=== PATIENT | male | born 1960 | race Caucasian/White ===

== ENCOUNTER → 2020-03-07 11:27 | Outpatient (CLI) | payer OTHER, SELFPAY ==
[2020-03-08 10:30] LABS: COVID19 Sendout Not Detected (Not Detect)
== END ==
PROVIDERS: PCP Family Medicine; Visit Provider Physician Assistant
DX: Z11.59 Encounter for screening for other viral diseases (principal)
CPT/HCPCS: 87635

== ENCOUNTER → 2024-01-11 09:32 | Outpatient (CLI) | payer MEDICARE, OTHER, SELFPAY ==
[2024-01-11 10:10] LABS: Add Manual Diff / Slide Review NO; Basophils Absolute Auto 100 /uL (0-100); Eosinophils Absolute Auto 200 /uL (0-450); Hematocrit 45.5 % (41-53); Hemoglobin 15.6 g/dL (13.5-17.5); Lymphocytes Absolute Auto 1500 /uL (1100-4500); Lymphocytes Percent Auto 27.8 % (25-40); Mean Corpuscular HGB Conc 34.3 % (30-36); Mean Corpuscular Hemoglobin 30.9 PG (26-34); Monocytes Absolute Auto 400 /uL (0-900); Monocytes Percent Auto 6.5 % (3-14); Neutrophils Absolute Auto 3400 /uL (1500-7000); Neutrophils Percent Auto 61.7 % (50-75); Platelet Count 220 X10^3/uL (150-400); Red Blood Cell Count 5.05 X10^6/uL (4.5-5.9); Red Cell Distribution Width 12.8 % (11.6-14.8); White Blood Cell Count 5.5 X10^3/uL (4.5-11.0)
[2024-01-11 12:38] LABS: Alanine Aminotransferase 34 IU/L (<50); Albumin 4.6 g/dL (3.5-5.0); Albumin Globulin Ratio 1.5 (1.0-2.8); Alkaline Phosphatase 83 U/L (38-126); Aspartate Aminotransferase 33 IU/L (17-59); BUN Creatinine Ratio 21.1 (6-22); Bilirubin Total 0.7 mg/dL (0.2-1.3); Blood Urea Nitrogen 16 mg/dL (9-20); Calcium 9.4 mg/dL (8.4-10.2); Carbon Dioxide 29 mmol/L (22-32); Chloride 105 mmol/L (98-107); Cholesterol 181 mg/dL (140-199); Estimated Glomerular Filt Rate > 60 mL/min (>60); Glucose 101 mg/dL (80-110); HDL Cholesterol 41 mg/dL (40-60); HEMOLYSIS < 15 (0-50); LDL Cholesterol Calculated 109 mg/dL (<100); Potassium 4.3 mmol/L (3.4-5.1); Sodium 137 mmol/L (137-145); Total Protein 7.6 g/dL (6.3-8.2); Triglycerides 154 mg/dL (35-150)
[2024-01-11 13:32] LABS: Hemoglobin A1C% w Est Avg Glu 5.3 % (4.0-6.0)
== END ==
PROVIDERS: PCP Nurse Practitioner Family; Referring Provider Nurse Practitioner Family; Visit Provider Nurse Practitioner Family
DX: E78.5 Hyperlipidemia, unspecified (principal); Z13.1 Encounter for screening for diabetes mellitus; K21.9 Gastro-esophageal reflux disease without esophagitis
CPT/HCPCS: 36415; 80053; 80061; 83036; 85025

== ENCOUNTER 2024-02-15 13:44 | Observation (INO) | payer MEDICARE, OTHER, SELFPAY ==
[2024-02-15] VITALS (25 sets, daily range): BP systolic 100–156; BP diastolic 65–85; PULSE 67–122; RESP 12–32; TEMP 36.1–37.1; O2SAT 93–99; BMI 31.1; BMI 30.8
--- NOTE | 2024-02-15 14:10 | DI.RAD.S_ITS ---
PROCEDURE: XR CHEST 1V INDICATIONS: chest pain TECHNIQUE: One view of the chest was acquired. COMPARISON: None. FINDINGS: Surgical changes and devices: None. Lungs and pleura: No pleural effusions or pneumothorax. Streaky left basilar opacity, likely atelectasis. Eventration of the right hemidiaphragm versus right basilar mass. Mediastinum: Mediastinal contours appear normal. Heart size is normal. Bones and chest wall: No suspicious bony lesions. Overlying soft tissues appear unremarkable. IMPRESSION: Even trace coffey of the right hemidiaphragm versus right basilar mass. Consider lateral x-ray for confirmation. Dictated by: Renato Blakely M.D. on 02/15/2024 at 14:45 Approved by: Reanto Blakely M.D. on 02/15/2024 at 14:46
--- NOTE | 2024-02-15 14:24 | ED.ARRPALP ---
HPI - Arrhythmia/Palpitations General Chief Complaint: Arrhythmia/Palpitations Stated Complaint: Irregular Heart Rate Time Seen by Provider: 02/15/24 14:23 Source: patient Mode of arrival: Ambulatory History of Present Illness HPI narrative: 63-year-old male with new diagnosis atrial flutter with rapid ventricular response noted in clinic today, referred for further evaluation. Patient does not recall any known diagnoses of heart rhythm problems, works as a contractor with regular long-haul flights, last long-haul flights to [facility] December 2023, had a shorter 2 hour flight from [place] on 01/31/2024, during which his smart watch was signaling that he had a fast heart rate, heart rate was indicated to be 130, he did feel that he was going a bit fast, no associated diaphoresis or shortness of breath, did not feel like he was going to pass out, he had for these intermittent events during the flight, did not seek care, has had it happen intermittently over the last 4-5 days, with your regular heartbeat sensation. He communicated with his primary care provider, who scheduled clinic appointment today, while in clinic they EKG shows atrial flutter with rapid ventricular response 100 and 30s, referred here. He does feel that his heart rate is going fast, still does not endorse any shortness of breath or diaphoresis, no syncope or presyncope symptoms. He denies any recent illness symptoms, no fevers or chills, no nausea vomiting or diarrhea, no change in medications, no [id number] decongestant medications, denies drug or alcohol use. He does not take blood thinner medications. He has no problems with GI bleeding in the past, no black or red stools, no nosebleeds. Related Data Home Medications Medication Instructions Recorded Confirmed loperamide 2 mg capsule mg PO 01/10/24 02/15/24 sildenafil 25 mg tablet (Viagra) 25 mg PO DAILY PRN 01/10/24 02/15/24 Previous Rx's Medication Instructions Recorded esomeprazole magnesium 20 mg 20 mg PO DAILY PRN acid reflux #90 01/10/24 capsule,delayed release (Nexium) caps gabapentin 100 mg capsule 100 mg PO QID pain #90 caps 01/10/24 simvastatin 10 mg tablet (Zocor) 10 mg PO HS #90 tabs 01/10/24 Allergies Allergy/AdvReac Type Severity Reaction Status Date / Time No Known Allergies Allergy Verified 02/15/24 17:59 Review of Systems Review of Systems Narrative: As per HPI Patient History Medical History (Updated 02/15/24 @ 17:57 by Coleman King MD) Atrial flutter CONSTANCE on CPAP Hyperlipidemia GERD (gastroesophageal reflux disease) History of colon polyps Surgical History History of repair of rotator cuff Social History household members: none Smoking Status: Former smoker alcohol intake: current Smoking Status: Former smoker alcohol intake frequency: a few times a week Alcohol type: wine Substance Use Type: does not use Exam Narrative Exam Narrative: GENERAL: Well-developed patient, in mild distress. HEAD: Atraumatic. Normocephalic. EYES: Pupils equal round and reactive. Extraocular motions intact. No scleral icterus. No injection or drainage. ENT: Nose without bleeding, purulent drainage. Throat without erythema, tonsillar hypertrophy or exudate. Airway patent. NECK: Trachea midline. Non tender CARDIOVASCULAR: Fast rate, regular rhythm, no obvious murmurs gallops, or rubs. RESPIRATORY: Clear to auscultation. Breath sounds equal bilaterally. No wheezes, rales, or rhonchi. GASTROINTESTINAL: Abdomen soft, non-tender, nondistended. EXTREMITIES: No edema or joint tenderness. BACK: Nontender without deformity or crepitance. No flank tenderness. NEURO: AOx3. SKIN: No rash or erythema of visible areas Initial Vital Signs Initial Vital Signs: Vital Signs Temperature 97 F L 02/15/24 13:59 Pulse Rate 85 02/15/24 13:59 Respiratory Rate 17 02/15/24 13:59 Blood Pressure 125/77 02/15/24 13:59 Pulse Oximetry 97 02/15/24 13:59 Oxygen Delivery Method Room Air 02/15/24 13:59 Course Orders Ordered: ED Orders 02/15/24 14:10 XR chest 1V Stat EKG-12 Lead Stat 02/15/24 14:19 Complete Blood Count AUTO DIFF Stat Comprehensive Metabolic Panel Stat Lipase Stat Magnesium Stat PTT Partial Thromboplastin Kenneth Stat Prothrombin Time INR Stat Troponin & CK Cardiac Panel Stat Atorvastatin Calcium (Atorvastatin 20 Mg Tablet) 10 mg PO BEDTIME VIRA Last Admin: 02/15/24 20:49 Dose: 10 mg Documented By: LIBERTY Gabapentin (Gabapentin 100 Mg Capsule) 100 mg PO QID VIRA Last Admin: 02/15/24 20:50 Dose: 100 mg Documented By: LIBERTY Amiodarone HCl/Dextrose (Nexterone) 360 mg in 200 mls @ 33.333 mls/hr IV NOW ONE; Protocol Stop: 02/15/24 23:52 Last Titration: 02/15/24 18:54 Dose: 33.333 ml/hr, 33.33 mls/hr Documented By: Titration: 02/15/24 18:09 Dose: 0 mls/hr Documented By: Admin: 02/15/24 18:07 Dose: 33.333 ml/hr, 33.33 mls/hr Documented By: JEROD Amiodarone HCl/Dextrose (Nexterone) 360 mg in 200 mls @ 16.7 mls/hr IV CONT VIRA; Protocol Stop: 02/16/24 11:52 Amiodarone HCl/Dextrose (Nexterone) 180 mg in 100 mls @ 16.7 mls/hr IV CONT VIRA Stop: 02/16/24 17:53 Pantoprazole Sodium (Pantoprazole Dr 40 Mg Tablet) 40 mg PO 0600 PRN PRN Reason: acid reflux Discontinued Medications Acetaminophen (Acetaminophen 325 Mg Tablet) 650 mg PO Q6H PRN PRN Reason: Fever/Mild Pain (1-3) Amiodarone HCl (Amiodarone 150 Mg/3 Ml Vial) 150 mg IV NOW ONE Stop: 02/15/24 16:55 Last Admin: 02/15/24 17:09 Dose: Not Given Documented By: ELI Amiodarone HCl (Amiodarone 200 Mg Tablet) 400 [facility] Apixaban (Apixaban 5 Mg Tablet) 5 mg PO NOW ONE Stop: 02/15/24 17:55 Last Admin: 02/15/24 18:01 Dose: 5 mg Documented By: JEROD Aspirin (Aspirin 81 Mg Chew Tab) 324 mg PO NOW ONE Stop: 02/15/24 14:11 Last Admin: 02/15/24 15:05 Dose: 324 mg Documented By: JIMMY Diltiazem HCl (Diltiazem 25 Mg/5 Ml Sdv) 20 mg IV NOW ONE Stop: 02/15/24 14:25 Last Admin: 02/15/24 15:05 Dose: 20 mg Documented By: JIMMY Amiodarone HCl/Dextrose (Nexterone) 150 mg in 100 mls @ 600 mls/hr IV NOW ONE; Protocol Stop: 02/15/24 17:17 Last Infusion: 02/15/24 17:32 Dose: Infused Documented By: Admin: 02/15/24 17:16 Dose: 600 mls/hr Documented By: JIMMY Vital Signs Vital signs: Vital Signs - 8 hr 02/15/24 13:59 02/15/24 14:53 02/15/24 14:55 Temperature 97 F L Pulse Rate 85 109 H 114 H Respiratory Rate 17 27 H 16 Blood Pressure 125/77 Pulse Oximetry 97 99 Oxygen Delivery Method Room Air 02/15/24 14:55 02/15/24 15:00 02/15/24 15:00 Temperature Pulse Rate 103 H Respiratory Rate 13 Blood Pressure 135/81 123/77 Pulse Oximetry 98 Oxygen Delivery Method 02/15/24 15:05 02/15/24 15:06 02/15/24 15:06 Temperature Pulse Rate 113 H 110 H Respiratory Rate 22 Blood Pressure 130/65 130/65 Pulse Oximetry 97 Oxygen Delivery Method 02/15/24 15:30 02/15/24 15:30 02/15/24 16:00 Temperature Pulse Rate 67 Respiratory Rate 17 Blood Pressure 120/77 122/79 Pulse Oximetry 95 Oxygen Delivery Method 02/15/24 16:00 02/15/24 16:15 02/15/24 16:15 Temperature Pulse Rate 68 70 Respiratory Rate 12 Blood Pressure 124/75 Pulse Oximetry 97 98 Oxygen Delivery Method 02/15/24 16:30 02/15/24 16:30 02/15/24 17:00 Temperature Pulse Rate 81 74 Respiratory Rate 15 Blood Pressure 122/79 Pulse Oximetry 98 96 Oxygen Delivery Method Room Air 02/15/24 17:00 02/15/24 17:30 02/15/24 17:30 Temperature Pulse Rate 86 Respiratory Rate 15 Blood Pressure 100/67 109/72 Pulse Oximetry 96 Oxygen Delivery Method MDM - Arrhythmia/Palpitations Lab Data Attestation: I reviewed the patient's lab results. 02/15/24 14:19 02/15/24 14:19 Labs: Lab Results 02/15/24 Range/Units 14:19 WBC 7.6 (4.5-11.0) X10^3/uL RBC 4.91 (4.5-5.9) X10^6/uL Hgb 15.2 (13.5-17.5) g/dL Hct 44.9 (41-53) % MCV 91.4 (80-100) fL MCH 30.9 (26-34) PG MCHC 33.8 (30-36) % RDW 12.9 (11.6-14.8) % Plt Count 236 (150-400) X10^3/uL Neut % (Auto) 57.1 (50-75) % Lymph % (Auto) 31.7 (25-40) % [place] % (Auto) 7.0 (3-14) % Eos % (Auto) 3.3 (2-4) % Baso % (Auto) 0.9 (0-2) % Neut # (Auto) 4300 (1700-3144) /uL Lymph # (Auto) 2400 (8296-5067) /uL [place] # (Auto) 500 (0-900) /uL Eos # (Auto) 200 (0-450) /uL Baso # (Auto) 100 (0-100) /uL PT 11.4 (9.4-12.5) SECONDS INR 1.0 (0.9-1.3) APTT 40 H (25.1-36.5) SECONDS Sodium 138 (137-145) mmol/L Potassium 3.9 (3.4-5.1) mmol/L Chloride 106 (98-107) mmol/L Carbon Dioxide 29 (22-32) mmol/L BUN 17 (9-20) mg/dL Creatinine 0.77 (0.66-1.25) mg/dL Estimated GFR > 60 (>60) mL/min BUN/Creatinine Ratio 22.1 H (6-22) Glucose 103 (80-110) mg/dL Calcium 8.7 (8.4-10.2) mg/dL Magnesium 2.2 (1.6-2.3) mg/dL Total Bilirubin 0.5 (0.2-1.3) mg/dL AST 28 (17-59) IU/L ALT 25 (<50) IU/L Alkaline Phosphatase 102 (38-126) U/L Total Creatine Kinase 143 (55-170) U/L Troponin I < 0.012 (0.01-0.034) ng/mL Total Protein 7.2 (6.3-8.2) g/dL Albumin 4.4 (3.5-5.0) g/dL Globulin 2.8 (1.7-4.1) g/dL Albumin/Globulin Ratio 1.6 (1.0-2.8) Lipase 125 (23-300) U/L TSH 1.85 (0.47-4.68) uIU/mL Imaging Data Chest x-ray: Radiologist's Impresson: [address] [address] XRay Report Signed Patient: Terrell Johnson MR#: [id number] : 1960 Acct:[id number] Age/Sex: 63 / M Date of Service: 02/15/24 Loc: ED Accession Number: [id number] Procedure: XR chest 1V Ordering Provider: Coleman King MD PROCEDURE: XR CHEST 1V INDICATIONS: chest pain TECHNIQUE: One view of the chest was acquired. COMPARISON: None. FINDINGS: Surgical changes and devices: None. Lungs and pleura: No pleural effusions or pneumothorax. Streaky left basilar opacity, likely atelectasis. Eventration of the right hemidiaphragm versus right basilar mass. Mediastinum: Mediastinal contours appear normal. Heart size is normal. Bones and chest wall: No suspicious bony lesions. Overlying soft tissues appear unremarkable. IMPRESSION: Even trace coffey of the right hemidiaphragm versus right basilar mass. Consider lateral x-ray for confirmation. Dictated by: Renato Blakely M.D. on 02/15/2024 at 14:45 Approved by: Renato Blakely M.D. on 02/15/2024 at 14:46 ECG Data Attestation: I personally reviewed and interpreted this ECG as follows: Interpretation: Atrial flutter with ventricular response rate 133, 2-[address] No obvious [address] segment elevation or depression changes. QRS 96, QTC 428. [facility] Narrative Medical decision making narrative: 63-year-old male with intermittent fast heart rate sensation, wrist watch alarming since 01/31/2024, seen in clinic today found to be in a flutter with rapid ventricular response, 2-1 block, referred here for further evaluation. He is aware of the sensation of heartbeat fast, but denies any chest discomfort, no shortness of breath, no syncope or presyncope symptoms. No ischemic changes on EKG here, which also shows atrial flutter with RVR 2-1 block with rate 130s. Systolic blood pressure adequate, IV diltiazem 20 mg dose given, subsequent heart rate decreased to 70 90s range. Electrolytes unremarkable. Troponin negative. Chest x-ray unremarkable. We will contact Cardiology regarding further workup inpatient versus outpatient. Case discussed with cardiology Dr. Santos, who recommends trial of rate control with amiodarone 150 mg bolus, drip infusion if this does not seem to be successful, then would recommend admission for echocardiogram and starting anticoagulation. If patient does seem to convert on the amiodarone bolus then she recommends discharge on amiodarone 200 mg twice daily, with metoprolol 25 mg ER once daily, and then either antiplatelet agent aspirin or Eliquis anticoagulant, with workup as an outpatient. IV amiodarone 150 mg ordered. No conversion after IV amiodarone bolus, we will initiate infusion. Contact hospitalist for admission, patient agreeable Case discussed with hospitalist Dr. Kilgore, we will initiate Eliquis anticoagulation 5 mg, continue amiodarone infusion, accepts for admit to ICU Critical Care Time Critical Care Time Critical Care Time: Yes Total Critical Care Time: 35 Attestation: The high probability of a clinically significant, sudden or life threatening deterioration of the [cardiopulmonary] system(s) required my full and direct attention, intervention and personal management. The aggregate critical care time was [35] minutes. This time is in addition to time spent performing reported procedures but includes the following: [x] Data Review and interpretation [x] Patient assessment and monitoring of vital signs [x] Documentation [x] Medication orders and management Discharge Plan Departure Patient Disposition: Admitted as Observation Clinical Impression: Atrial flutter with rapid ventricular response Admit Date/Time: 02/15/24 17:56 Admit Provider: Moi Kilgore
[2024-02-15 14:28] LABS: Add Manual Diff / Slide Review NO; Basophils Absolute Auto 100 /uL (0-100); Basophils Percent Auto 0.9 % (0-2); Eosinophils Absolute Auto 200 /uL (0-450); Eosinophils Percent Auto 3.3 % (2-4); Hematocrit 44.9 % (41-53); Hemoglobin 15.2 g/dL (13.5-17.5); Lymphocytes Absolute Auto 2400 /uL (1100-4500); Lymphocytes Percent Auto 31.7 % (25-40); Mean Corpuscular HGB Conc 33.8 % (30-36); Mean Corpuscular Hemoglobin 30.9 PG (26-34); Mean Corpuscular Volume 91.4 fL (80-100); Monocytes Absolute Auto 500 /uL (0-900); Neutrophils Absolute Auto 4300 /uL (1500-7000); Neutrophils Percent Auto 57.1 % (50-75); Platelet Count 236 X10^3/uL (150-400); Red Blood Cell Count 4.91 X10^6/uL (4.5-5.9); Red Cell Distribution Width 12.9 % (11.6-14.8); White Blood Cell Count 7.6 X10^3/uL (4.5-11.0)
[2024-02-15 14:34] LABS: Prothrombin Time 11.4 SECONDS (9.4-12.5)
[2024-02-15 14:37] LABS: PTT Partial Thromboplastin Tim 40 SECONDS (25.1-36.5)
[2024-02-15 14:38] LABS: Alanine Aminotransferase 25 IU/L (<50); Albumin 4.4 g/dL (3.5-5.0); Albumin Globulin Ratio 1.6 (1.0-2.8); Alkaline Phosphatase 102 U/L (38-126); Aspartate Aminotransferase 28 IU/L (17-59); BUN Creatinine Ratio 22.1 (6-22); Bilirubin Total 0.5 mg/dL (0.2-1.3); Blood Urea Nitrogen 17 mg/dL (9-20); Calcium 8.7 mg/dL (8.4-10.2); Carbon Dioxide 29 mmol/L (22-32); Chloride 106 mmol/L (98-107); Creatine Kinase 143 U/L (55-170); Estimated Glomerular Filt Rate > 60 mL/min (>60); Globulin 2.8 g/dL (1.7-4.1); Glucose 103 mg/dL (80-110); HEMOLYSIS < 15 (0-50); Lipase 125 U/L (23-300); Magnesium 2.2 mg/dL (1.6-2.3); Potassium 3.9 mmol/L (3.4-5.1); Sodium 138 mmol/L (137-145); Total Protein 7.2 g/dL (6.3-8.2)
[2024-02-15 14:50] LABS: Troponin I < 0.012 ng/mL (0.01-0.034)
[2024-02-15] MEDS: dilTIAZem 25 MG/5 ML SDV 20 MG IV (15:05)
[2024-02-15] MEDS: ASPIRIN 81 MG CHEW TAB 324 MG PO (15:05)
[2024-02-15] MEDS: AMIODARONE 150 MG/100 ML PIGGYBACK 600 MG IV (17:16)
[2024-02-15] MEDS: APIXABAN 5 MG TABLET PO (18:01)
[2024-02-15] MEDS: AMIODARONE 360 MG/200 ML PIGGYBACK 33.33 MG IV (18:07)
--- NOTE | 2024-02-15 18:29 | DI.ECHO.S_ITS ---
[facility]+ [facility] : : [address] : : [place] : : [id number] : : Phone: [phone] Echocardiogram Report + + :Name: ZOHRA RODNEY Study Date: 02/16/2024 Height: 73 in : :Hospital ReadingLocation: Weight: 236 lb : : Gender: Male BSA: 2.3 m2 : :: 1960 Age: 63 yrs BP: 137/68 mmHg: :Reason For Study: ATRIAL FLUTTER : :Ordering Physician: NELLIE, : :MENDOZA Reyes Performed By: Annmarie Bartlett : :Referring: MENDOZA BALLARD : + + Interpretation Summary The patient was in atrial fibrillation with heart rates between 66-122 bpm during the exam. Overall, the LV systolic function appears preserved. However, difficult to quantify the function due rate and rhythm abnormalities. The right ventricular systolic function is normal. The left atrium is mildly dilated. The right atrium is mildly dilated. The right ventricular systolic pressure is estimated to be at least 22 mmHg based on an estimated right atrial pressure of 3 mm Hg. No significant valvular abnormality. Procedure: A two-dimensional transthoracic echocardiogram with color flow and Doppler was performed. The study quality was technically adequate. There is no prior echocardiogram noted for this patient. The patient was in atrial fibrillation with heart rates between 66-122 bpm during the exam. Left Ventricle: The left ventricle is normal in size and wall thickness. Overall, the LV systolic function appears preserved. However, difficult to quantify the function due rate and rhythm abnormalities. Diastolic function could not be accurately assessed due to atrial fibrillation. Right Ventricle: The right ventricle is mildly dilated. The right ventricular systolic function is normal. Atria: The left atrium is mildly dilated. The right atrium is mildly dilated. There is no Doppler evidence for an interatrial shunt. The atrial septum is aneurysmal. Mitral Valve: The mitral valve is normal in structure and function. There is trace mitral regurgitation. Aortic Valve: The aortic valve is trileaflet. The aortic valve opens well. There is no aortic valve stenosis. There is trace aortic regurgitation. Tricuspid Valve: The tricuspid valve is normal in structure and function. There is mild tricuspid regurgitation. The right ventricular systolic pressure is estimated to be at least 22 mmHg based on an estimated right atrial pressure of 3 mm Hg. Pulmonic Valve: The pulmonic valve leaflets are thin and pliable; valve motion is normal. There is no pulmonic valvular regurgitation. Great Vessels: The aortic root is normal size. The dimensions of the ascending aorta are normal. The IVC is of normal diameter and collapses greater than 50% with a sniff. This suggests a low right atrial pressure of 3 mm Hg. Pericardium/ Pleura There is no pericardial effusion. There is no pleural effusion. MMode/2D Measurements & Calculations LVIDd: 5.4 cm LVOT diam: 2.1 cm LVIDs: 4.0 cm Ao root diam: 3.3 cm FS: 26.4 % asc Aorta Diam: 3.3 cm IVSd: 0.95 cm Ao Arch Diam (Prox Trans): 3.1 cm LVPWd: 0.91 cm LV yu. diameter/BSA (cm/m^2): 2.3 LV sys. diameter/BSA (cm/m^2): 1.7 LA A2 area: 30.1 cm2 RA long axis: 6.1 cm LA A4 area: 20.4 cm2 RA area: 22.4 cm2 LA length (vol): 6.1 cm RA vol: 69.5 ml LA vol: 84.8 ml RA : 30.1 ml/m2 LA vol index: 36.7 ml/m2 IVC diam: 2.0 cm RVD1 (basal): 4.4 cm RVD2 (mid): 3.5 cm TAPSE: 2.3 cm Doppler Measurements & Calculations Ao V2 max: 141.8 cm/sec LVOT Max Dylan: 99.3 cm/sec Ao V2 mean: 99.0 cm/sec LV V1 max P.0 mmHg Ao max P.0 mmHg LV V1 VTI: 19.9 cm Ao mean P.4 mmHg CHRISTIAN(I,D): 2.6 cm2 Ao V2 VTI: 27.5 cm CHRISTIAN(V,D): 2.5 cm2 sev ratio: 0.72 CHRISTIAN indexed to BSA (cm^2/m^2): 1.1 MV E max dylan: 81.9 cm/sec TR max dylan: 218.3 cm/sec MV A max dylan: 0.68 cm/sec TR max P.1 mmHg MV E/A: 120.6 PA V2 max: 85.7 cm/sec Med Peak E' Dylan: 9.0 cm/sec PA V2 mean: 64.8 cm/sec E/E' med: 9.1 PA mean P.8 mmHg Lat Peak E' Dylan: 8.6 cm/sec PA pr(Accel): 43.0 mmHg E/E' lat: 9.5 E/e' average: 9.3 MV dec time: 0.09 sec SV(LVOT): 70.9 ml Reading Physician:YOANDY
--- NOTE | 2024-02-15 18:33 | PM.HP.1 ---
History of Present Illness History of Present Illness Date Patient Seen: 02/15/24 Chief complaint: Irregular Heart Rate Narrative: Humble Johnson is a 63yo M with PMH of CONSTANCE on CPAP, HLD, GERD, and ED who presents with new-onset A-flutter. Patient was on a flight and noticed his Apple watch saying his HR was in the 130's. He denies symtpoms other than a minor flutter in chest. He has no history of arrythmias. In the ED found to be in A-flutter. Placed on amio drip per cardiology and admitted for echo and hopeful conversion on the drip. He denies CP, SOB, NV, abd pain or diarrhea. [facility] Medical History (Updated 02/15/24 @ 17:57 by Coleman King MD) Atrial flutter CONSTANCE on CPAP Hyperlipidemia GERD (gastroesophageal reflux disease) History of colon polyps Surgical History History of repair of rotator cuff Social History Smoking Status: Former smoker Meds Home Medications and Allergies Home Medications Medication Instructions Recorded Confirmed Type esomeprazole magnesium 20 mg 20 mg PO DAILY PRN acid reflux #90 01/10/24 02/15/24 Rx capsule,delayed release (Nexium) caps gabapentin 100 mg capsule 100 mg PO QID pain #90 caps 01/10/24 02/15/24 Rx loperamide 2 mg capsule mg PO 01/10/24 02/15/24 History sildenafil 25 mg tablet (Viagra) 25 mg PO DAILY PRN 01/10/24 02/15/24 History simvastatin 10 mg tablet (Zocor) 10 mg PO HS #90 tabs 01/10/24 02/15/24 Rx Allergies Allergy/AdvReac Type Severity Reaction Status Date / Time No Known Allergies Allergy Verified 02/15/24 17:59 Review of Systems Review of Systems Narrative: All other systems reviewed with the patient and are negative unless otherwise stated. Exam Vital Signs (past 8 hours): - 02/15/24 13:59 02/15/24 14:53 02/15/24 14:55 Temperature 97 F L Pulse Rate 85 109 H 114 H Respiratory Rate 17 27 H 16 Blood Pressure 125/77 Pulse Oximetry 97 99 Oxygen Delivery Method Room Air 02/15/24 14:55 02/15/24 15:00 02/15/24 15:00 Temperature Pulse Rate 103 H Respiratory Rate 13 Blood Pressure 135/81 123/77 Pulse Oximetry 98 Oxygen Delivery Method 02/15/24 15:05 02/15/24 15:06 02/15/24 15:06 Temperature Pulse Rate 113 H 110 H Respiratory Rate 22 Blood Pressure 130/65 130/65 Pulse Oximetry 97 Oxygen Delivery Method 02/15/24 15:30 02/15/24 15:30 02/15/24 16:00 Temperature Pulse Rate 67 Respiratory Rate 17 Blood Pressure 120/77 122/79 Pulse Oximetry 95 Oxygen Delivery Method 02/15/24 16:00 02/15/24 16:15 02/15/24 16:15 Temperature Pulse Rate 68 70 Respiratory Rate 12 Blood Pressure 124/75 Pulse Oximetry 97 98 Oxygen Delivery Method 02/15/24 16:30 02/15/24 16:30 02/15/24 17:00 Temperature Pulse Rate 81 74 Respiratory Rate 15 Blood Pressure 122/79 Pulse Oximetry 98 96 Oxygen Delivery Method Room Air 02/15/24 17:00 02/15/24 17:30 02/15/24 17:30 Temperature Pulse Rate 86 Respiratory Rate 15 Blood Pressure 100/67 109/72 Pulse Oximetry 96 Oxygen Delivery Method 02/15/24 18:00 02/15/24 18:00 Temperature Pulse Rate 80 Respiratory Rate 16 Blood Pressure 122/72 Pulse Oximetry 98 Oxygen Delivery Method Oxygen Delivery Method Room Air Narrative Exam Narrative: GEN: no acute distress HEENT: moist mucous membranes, PERRL NECK: trachea midline, no JVD CV: tachycardic, irregular, no murmurs PULM: clear bilaterally ABD: soft, nontender, nondistended, no organomegaly EXT: warm and well perfused with no edema NEURO: awake, alert, oriented, no focal deficits Objective Labs 02/15/24 14:19 02/15/24 14:19 Labs: Laboratory Results - last 24 hr 02/15/24 14:19 WBC 7.6 RBC 4.91 Hgb 15.2 Hct 44.9 MCV 91.4 MCH 30.9 MCHC 33.8 RDW 12.9 Plt Count 236 Neut % (Auto) 57.1 Lymph % (Auto) 31.7 [place] % (Auto) 7.0 Eos % (Auto) 3.3 Baso % (Auto) 0.9 Neut # (Auto) 4300 Lymph # (Auto) 2400 [place] # (Auto) 500 Eos # (Auto) 200 Baso # (Auto) 100 PT 11.4 INR 1.0 APTT 40 H Sodium 138 Potassium 3.9 Chloride 106 Carbon Dioxide 29 BUN 17 Creatinine 0.77 Estimated GFR > 60 BUN/Creatinine Ratio 22.1 H Glucose 103 Calcium 8.7 Magnesium 2.2 Total Bilirubin 0.5 AST 28 ALT 25 Alkaline Phosphatase 102 Total Creatine Kinase 143 Troponin I < 0.012 Total Protein 7.2 Albumin 4.4 Globulin 2.8 Albumin/Globulin Ratio 1.6 Lipase 125 Assessment & Plan Assessment & Plan narrative: # new onset atrial flutter -asymptomatic but Apple watch noted heart rate 130s at rest -EKG confirmed atrial flutter, cardiology's spoke to in ED who recommended amio drip and echo -continue amiodarone, with transition to p.o. amiodarone morning and wean off drip -echo ordered -[id number] of 1, discuss anticoag vs aspirin alone. Was given a dose of eliquis in ED. -tele # HLD -continue statin # CONSTANCE -continue CPAP # GERD -continue PPI Code status is full code. DVT prophylaxis with SCDs. Proxy is Jenn. I have reviewed home meds and used all available resources to reconcile the home meds. Case discussed with ED physician/APC and patient will be admitted to the hospitalist service for further workup and management. This patient will be admitted as obs ICU and will require less than 2 midnights of hospital time to treat atrial flutter.
--- NOTE | 2024-02-15 18:50 | PC.ADMIT ---
[email or web address] Admission Note: The patient,Terrell Johnson,63 y/o, was given written information regarding hospital policies, unit procedures and contact persons. Patient's smoking status: Former smoker. Vital Signs - 8 hr 02/15/24 13:59 02/15/24 14:53 02/15/24 14:55 Temperature 97 F L Pulse Rate 85 109 H 114 H Respiratory Rate 17 27 H 16 Blood Pressure 125/77 Pulse Oximetry 97 99 Oxygen Delivery Method Room Air 02/15/24 14:55 02/15/24 15:00 02/15/24 15:00 Temperature Pulse Rate 103 H Respiratory Rate 13 Blood Pressure 135/81 123/77 Pulse Oximetry 98 Oxygen Delivery Method 02/15/24 15:05 02/15/24 15:06 02/15/24 15:06 Temperature Pulse Rate 113 H 110 H Respiratory Rate 22 Blood Pressure 130/65 130/65 Pulse Oximetry 97 Oxygen Delivery Method 02/15/24 15:30 02/15/24 15:30 02/15/24 16:00 Temperature Pulse Rate 67 Respiratory Rate 17 Blood Pressure 120/77 122/79 Pulse Oximetry 95 Oxygen Delivery Method 02/15/24 16:00 02/15/24 16:15 02/15/24 16:15 Temperature Pulse Rate 68 70 Respiratory Rate 12 Blood Pressure 124/75 Pulse Oximetry 97 98 Oxygen Delivery Method 02/15/24 16:30 02/15/24 16:30 02/15/24 17:00 Temperature Pulse Rate 81 74 Respiratory Rate 15 Blood Pressure 122/79 Pulse Oximetry 98 96 Oxygen Delivery Method Room Air 02/15/24 17:00 02/15/24 17:30 02/15/24 17:30 Temperature Pulse Rate 86 Respiratory Rate 15 Blood Pressure 100/67 109/72 Pulse Oximetry 96 Oxygen Delivery Method 02/15/24 18:00 02/15/24 18:00 02/15/24 18:30 Temperature Pulse Rate 80 90 Respiratory Rate 16 32 H Blood Pressure 122/72 Pulse Oximetry 98 99 Oxygen Delivery Method Pt arrived via gurney from ED, able to ambulate to bed, HR 100-120s, Aflutter on telemetry, otherwise no distress or discomfort. Connected to all monitoring equipment, Amiodarone gtt infusing at 33.3 (see emar for documentation). Oriented to room and call light system, bed low and locked, call light within reach, no further needs at this time
[2024-02-15 20:26] LABS: TSH w/ Reflex to FT4 1.85 uIU/mL (0.47-4.68)
[2024-02-15] MEDS: ATORVASTATIN 20 MG TABLET 10 MG PO (20:49)
[2024-02-15] MEDS: GABAPENTIN 100 MG CAPSULE PO (20:50)
[2024-02-15 22:17] LABS: MRSA (Nasal) PCR NOT DETECTED (Not Detect)
[2024-02-16] VITALS (24 sets, daily range): BP systolic 105–137; BP diastolic 58–85; PULSE 61–113; RESP 20; TEMP 36.3; O2SAT 94–97
[2024-02-16] MEDS: AMIODARONE 360 MG/200 ML PIGGYBACK 16.7 MG IV (00:02)
[2024-02-16 05:32] LABS: Add Manual Diff / Slide Review NO; Basophils Absolute Auto 100 /uL (0-100); Basophils Percent Auto 0.9 % (0-2); Eosinophils Absolute Auto 200 /uL (0-450); Eosinophils Percent Auto 3.4 % (2-4); Hematocrit 41.9 % (41-53); Hemoglobin 14.5 g/dL (13.5-17.5); Lymphocytes Absolute Auto 2600 /uL (1100-4500); Lymphocytes Percent Auto 35.7 % (25-40); Mean Corpuscular HGB Conc 34.7 % (30-36); Mean Corpuscular Hemoglobin 31.3 PG (26-34); Mean Corpuscular Volume 90.1 fL (80-100); Monocytes Absolute Auto 500 /uL (0-900); Monocytes Percent Auto 7.4 % (3-14); Neutrophils Absolute Auto 3900 /uL (1500-7000); Neutrophils Percent Auto 52.6 % (50-75); Platelet Count 219 X10^3/uL (150-400); Red Blood Cell Count 4.65 X10^6/uL (4.5-5.9); Red Cell Distribution Width 13.2 % (11.6-14.8); White Blood Cell Count 7.3 X10^3/uL (4.5-11.0)
[2024-02-16 05:38] LABS: BUN Creatinine Ratio 22.2 (6-22); Blood Urea Nitrogen 16 mg/dL (9-20); Calcium 8.6 mg/dL (8.4-10.2); Carbon Dioxide 27 mmol/L (22-32); Chloride 108 mmol/L (98-107); Estimated Glomerular Filt Rate > 60 mL/min (>60); Glucose 96 mg/dL (80-110); Sodium 137 mmol/L (137-145)
[2024-02-16 05:51] LABS: HEMOLYSIS 61 (0-50); Potassium 3.8 mmol/L (3.4-5.1)
[2024-02-16] MEDS: PANTOPRAZOLE DR 40 MG TABLET PO (06:20)
[2024-02-16] MEDS: GABAPENTIN 100 MG CAPSULE PO (08:31)
[2024-02-16] MEDS: METOPROLOL ER 25 MG TABLET PO (08:31)
[2024-02-16] MEDS: APIXABAN 5 MG TABLET PO (08:31)
--- NOTE | 2024-02-16 10:36 | P.DS_ITS ---
History of Present Illness History of Present Illness Date Patient Seen: 02/16/24 Time Patient Seen: 10:36 Chief complaint: Irregular Heart Rate Narrative: Per admitting provider, Humble Johnson is a 63yo M with PMH of CONSTANCE on CPAP, HLD, GERD, and ED who presents with new-onset A-flutter. Patient was on a flight and noticed his Apple watch saying his HR was in the 130's. He denies symtpoms other than a minor flutter in chest. He has no history of arrythmias. In the ED found to be in A-flutter. Placed on amio drip per cardiology and admitted for echo and hopeful conversion on the drip. He denies CP, SOB, NV, abd pain or diarrhea. Discharge Providers Provider Date of admission: 02/15/24 17:56 Discharge Date: 02/16/24 Primary care physician: Regina Dawn [facility] Discharge provider: Jamaal Chavis DO Summary Hospital Course Discharge Diagnosis: # new onset atrial flutter with rapid ventricular response # HLD # CONSTANCE # GERD Hospital Course: This is a 63 year old male with PMH of CONSTANCE, GERD, HLD who presented after apple watch noted fast and irregular heart beat. He was asymptomatic. There was no evidence of acute ischemia. Echocardiogram was difficult to interpret but showed grossly normal EF per final read. He was recommended for amiodarone infusion by spray drier operator over the phone, however this did not convert the patient to NSR. Rate improved to the 60s - 70s after a single dose of oral metoprolol. He remained asymptomatic. He was discharged on 25 mg of metoprolol succinate twice daily. Recommend outpatient evaluation with PCP and referral to cardiology for ongoing management of atrial fibrillation. I discussed aspirin or DOAC with patient, counseled on risks and benefits of each and patient elected for continuation of aspirin only at this time for stroke prevention. Time Spent with Patient Time spent: Greater than 30 minutes Exam Vital Signs (past 8 hours): - 02/16/24 03:00 02/16/24 03:03 02/16/24 03:03 Temperature Pulse Rate 110 H 105 H Respiratory Rate Blood Pressure 105/58 L Pulse Oximetry 94 96 Oxygen Delivery Method 02/16/24 03:30 02/16/24 04:00 02/16/24 04:00 Temperature Pulse Rate 96 H 111 H Respiratory Rate Blood Pressure 113/75 Pulse Oximetry 95 94 Oxygen Delivery Method 02/16/24 04:15 02/16/24 04:18 02/16/24 04:30 Temperature 97.4 F L Pulse Rate 87 Respiratory Rate Blood Pressure Pulse Oximetry 96 Oxygen Delivery Method Room Air 02/16/24 05:00 02/16/24 05:00 02/16/24 05:30 Temperature Pulse Rate 105 H 92 H Respiratory Rate Blood Pressure 115/73 Pulse Oximetry 94 95 Oxygen Delivery Method 02/16/24 06:00 02/16/24 06:00 02/16/24 06:01 Temperature Pulse Rate 90 113 H Respiratory Rate 20 Blood Pressure Pulse Oximetry 95 95 Oxygen Delivery Method 02/16/24 06:01 02/16/24 06:30 02/16/24 07:00 Temperature Pulse Rate 113 H 111 H Respiratory Rate Blood Pressure 137/68 Pulse Oximetry 95 95 Oxygen Delivery Method 02/16/24 07:00 02/16/24 07:30 02/16/24 08:00 Temperature Pulse Rate 97 H Respiratory Rate Blood Pressure 121/83 135/85 Pulse Oximetry 96 Oxygen Delivery Method 02/16/24 08:00 02/16/24 08:00 02/16/24 08:30 Temperature Pulse Rate 99 H 91 H Respiratory Rate Blood Pressure Pulse Oximetry 95 95 Oxygen Delivery Method Room Air 02/16/24 09:00 02/16/24 09:00 02/16/24 09:30 Temperature Pulse Rate 66 64 Respiratory Rate Blood Pressure 123/73 Pulse Oximetry 97 96 Oxygen Delivery Method 02/16/24 10:00 02/16/24 10:00 Temperature Pulse Rate 61 Respiratory Rate Blood Pressure 124/78 Pulse Oximetry 95 Oxygen Delivery Method Oxygen Delivery Method Room Air Narrative Exam Narrative: Gen: No acute distress Ext: no edema CV: RRR (flutter on monitor) Objective Labs 02/16/24 04:05 02/16/24 04:05 Labs: Laboratory Results - last 24 hr 02/15/24 02/15/24 02/16/24 14:19 18:29 04:05 WBC 7.6 7.3 RBC 4.91 4.65 Hgb 15.2 14.5 Hct 44.9 41.9 MCV 91.4 90.1 MCH 30.9 31.3 MCHC 33.8 34.7 RDW 12.9 13.2 Plt Count 236 219 Neut % (Auto) 57.1 52.6 Lymph % (Auto) 31.7 35.7 [place] % (Auto) 7.0 7.4 Eos % (Auto) 3.3 3.4 Baso % (Auto) 0.9 0.9 Neut # (Auto) 4300 3900 Lymph # (Auto) 2400 2600 [place] # (Auto) 500 500 Eos # (Auto) 200 200 Baso # (Auto) 100 100 PT 11.4 INR 1.0 APTT 40 H Sodium 138 137 Potassium 3.9 3.8 Chloride 106 108 H Carbon Dioxide 29 27 BUN 17 16 Creatinine 0.77 0.72 Estimated GFR > 60 > 60 BUN/Creatinine Ratio 22.1 H 22.2 H Glucose 103 96 Calcium 8.7 8.6 Magnesium 2.2 Total Bilirubin 0.5 AST 28 ALT 25 Alkaline Phosphatase 102 Total Creatine Kinase 143 Troponin I < 0.012 Total Protein 7.2 Albumin 4.4 Globulin 2.8 Albumin/Globulin Ratio 1.6 Lipase 125 TSH 1.85 Nasal Screen MRSA (PCR) Not detected [facility] Medical History (Updated 02/15/24 @ 17:57 by Coleman King MD) Atrial flutter CONSTANCE on CPAP Hyperlipidemia GERD (gastroesophageal reflux disease) History of colon polyps Surgical History History of repair of rotator cuff Social History household members: none Smoking Status: Former smoker alcohol intake: current Discharge Plan Discharge Plan Patient Disposition: Home Provider Discharge Comment: You were admitted to the hospital with atrail flutter with a fast heart rate. Amiodarone did not help with conversion, rate improved with metoprolol. Continue baby aspirin 81 mg daily, and metoprolol 25 mg twice a day for now. IF your heart rate is <50 at home, reduce metoprolol to once daily. Follow up with PCP and likely referral needed to spray drier operator. Discharge orders & Medications Prescriptions: New aspirin 81 mg capsule 81 mg PO DAILY 90 Days Qty: 90 0RF metoprolol succinate 25 mg tablet extended release 24 hr 25 mg PO BID 90 Days Qty: 180 0RF Continued loperamide 2 mg capsule 2 mg PO PRN (Reason: Diarrhea) sildenafil [Viagra] 25 mg tablet 25 mg PO DAILY PRN (Reason: Erectile Dysfunction) Rx Instructions: administer 30 minutes to 4 hours before activity esomeprazole magnesium [Nexium] 20 mg capsule,delayed release(DR/EC) 20 mg PO DAILY PRN (Reason: acid reflux) Qty: 90 3RF simvastatin [Zocor] 10 mg tablet 10 mg PO HS Qty: 90 3RF gabapentin 100 mg capsule 100 mg PO QID Qty: 90 3RF Follow up/Referrals: Regina Dawn FNP-BC [Primary Care Provider] - Diet/Activity/Treatments Diet: Diet as Tolerated and Regular Activity: As tolerated, no restrictions Visit Report/Discharge Packet Stand Alone Forms: Patient Portal/API, Stroke Signs & Symptoms Discharge Data Primary Care Provider: Regina Dawn Attending Provider: Moi Kilgore Admit Date/Time: 02/15/24 17:56
--- NOTE | 2024-02-16 13:14 | CM.DANOTE ---
Discharge Planning/Care Management CM Discharge Assessment Start: 02/16/24 13:11 Freq: Status: Active Protocol: Document 02/16/24 13:11 NIKI (Rec: 02/16/24 13:14 NIKI [id number]) Discharge Planning Assessment Assigned Lehr Loader WAYLON Gr DPOA/Assigned Designee Name ashvin Baker Contact Information [phone] Advance Directives? No History Provided By Patient,Medical Record Prior Living Arrangements House Household Members none Type of transporation used prior to Drives own vehicle admit Independent with ADL's Yes Is patient alert and oriented? Yes Barriers to Discharge No Comment Discharged home w/ recommendation for close outpatient follow up. Patient at functional baseline, indp in all aspects. No needs identified from this CM team. Discharge Plan Home Transportation Arrangement Self, pov Referrals Initiated None needed
== END 2024-02-16 11:10 | disposition home or self-care (01) ==
LOC: ED 14:23 → AC 17:56 → ICU 18:20
PROVIDERS: Admitting Provider Student in an Organized Health Care Education/Training Program; Emergency Provider Emergency Medicine; PCP Nurse Practitioner Family; Referring Provider Emergency Medicine; Visit Provider Student in an Organized Health Care Education/Training Program
DX: I48.92 Unspecified atrial flutter (principal); E78.5 Hyperlipidemia, unspecified; G47.33 Obstructive sleep apnea (adult) (pediatric); K21.9 Gastro-esophageal reflux disease without esophagitis
CPT/HCPCS: 36415; 71045; 80048; 80053; 82550; 83690; 83735; 84443; 84484; 85025; 85610; 85730; 87797; 93005; 93306; 96365; 96366; 96375; 99284; 99291; G0378; J0282

== ENCOUNTER 2024-03-07 13:06 | Day surgery (SDC) | payer MEDICARE, OTHER, SELFPAY ==
[2024-02-15 18:19] VITALS: BMI 30.8
--- NOTE | 2024-03-07 | PATH_ITS ---
[facility] Accession Number: [id number] No. of containers..03 Tissue . 01 Material submitted: . PART A: stomach - ANTRUM-RANDOM BIOPSIES PART B: colon - ASCENDING POLYP PART C: colon - DESCENDING POLYPS . 01 Diagnosis: A. STOMACH, ANTRUM, RANDOM BIOPSIES: Antral mucosa with mild chronic gastritis. Negative for Helicobacter by immunohistochemistry. Negative for intestinal metaplasia. Negative for dysplasia and malignancy. . B. ASCENDING COLON, POLYP: Colonic mucosa with a few small benign lymphoid aggregates, and no other diagnostic abnormality. Negative for dysplasia and malignancy. . C. DESCENDING COLON, POLYPS: Tubular adenoma. Hyperplastic polyp. MRV 03/11/2024 1553 Local . 01 Electronically signed: . Carla Navarrete MD, Pathologist NPI- [id number] . 01 Gross description: . A. Received in formalin with two patient identifiers and antrum biopsy, are two edge soft tissue fragments, 0.3 to 0.5 cm in greatest dimension. Submitted in A1. B. Received in formalin with two patient identifiers and ascending colon polyp, are multiple edge to yellow soft tissue fragments aggregating to 1.5 x 0.5 x 0.2 cm. Filtered and submitted in B1. C. Received in formalin with two patient identifiers and descending colon polyp, are two edge soft tissue fragments, 0.5 to 1.0 cm in greatest dimension. Submitted in C1. ([id number]) /MRV 03/08/2024 1453 Local . 01 Microscopic: . A. An immunohistochemical stain was performed to evaluate for Helicobacter organisms and is negative. The control stain showed appropriate reactivity. . * This test was developed and its performance characteristics determined by [facility]. It has not been cleared or approved by the U.S. Food and Drug Administration. The FDA has determined that such clearance or approval is not necessary. This test is used for clinical purposes. It should not be regarded as investigational or for research. . 01 Pathologist provided ICD-10: D12.4 . 01 CPT . 655558, 912901, 618591, U13513 Specimen Comment: A courtesy copy of this report has been sent to [phone] Performed at: [address] [id number] MD Clinton Faria MD Phone: [phone]
[2024-03-07 13:42] VITALS: BP 111/86; PULSE 130; RESP 20; TEMP 36.1; O2SAT 94
[2024-03-07] MEDS: LACTATED RINGERS 1,000 ML 42 ML IV (13:54)
--- NOTE | 2024-03-07 14:18 | PM.PREOP ---
Pre-operative Note COVID-19 COVID-19 status: Not tested Interval Note History & Physical reviewed/Exam performed by Physician: Yes Changes to H&P: No ASA Class (for procedural sedation): III
--- NOTE | 2024-03-07 15:04 | P.OP.EGD&C_ITS ---
Operative Date/Time/Diagnoses Date of procedure: 03/07/24 Time of procedure: 15:04 Pre-op diagnosis: GERD and history of polyps Post-op diagnosis: same Procedure & Clinicians Study performed: EGD and colonoscopy Same procedure as scheduled: Yes Surgeon: Sawyer Olivera Procedure Notes Procedure in detail: Surgeon: Sawyer Olivera MD Anesthesia: Estrella Hathaway MD Procedure in detail: A timeout was performed. A bite blocked was placed and monitors were attached to the patient. The patient was positioned in the left lateral decubitus position. Sedation was administered. Once the patient was sedated the endoscope was inserted through the bite block and passed through the esophagus and stomach and into the duodenum. No abnormalities were seen. We then withdrew the scope into the stomach. There was mild antritis and random biopsies were taken from the antrum with cold forceps. The endoscope was retroflexed and no significant hiatal hernia was seen. The endoscope was straightned and withdrawn into the esophagus. No abnormalities were seen. EGD findings: Mild antritis Next we repositioned the patient for a colonoscopy. A digital rectal exam was performed and was normal. The colonoscope was inserted and advanced to the cecum. The appendiceal orifice was identified and photographed. The scope was slowly withdrawn over greater than 6 minutes. There was a 5 mm polyp in the ascending colon removed with a snare. There were 2 5 mm polyps in the descending colon removed with a cold snare and sent together. The scope was retroflexed in the rectum and no other abnormalities were found. Colonoscopy findings: 5 mm polyp in the ascending colon and 2 5 mm polyps in th e descending Total procedural EBL: 5 mL Scope withdrawal time: 13 minutes Sedation minutes: 27 minutes Post-procedure Disposition: PACU
[2024-03-07 15:07] VITALS: BP 97/71; PULSE 122; RESP 17; TEMP 36.8; O2SAT 97
[2024-03-07 15:12] VITALS: BP 95/70; PULSE 121; RESP 16; O2SAT 96
[2024-03-07 15:22] VITALS: BP 98/72; PULSE 122; RESP 12; TEMP 36.3; O2SAT 98
[2024-03-07 15:23] VITALS: BP 98/65; PULSE 123; RESP 14; TEMP 36.3; O2SAT 97
== END 2024-03-07 15:40 | disposition home or self-care (01) ==
PROVIDERS: PCP Nurse Practitioner Family; Referring Provider Surgery; Visit Provider Surgery
PROC: 0DJ08ZZ Inspection of Upper Intestinal Tract, Via Natural or Artificial Opening Endoscopic (ICD-10-PCS; CPT 43235; principal; 2024-03-07 14:15)
PROC: 0DJD8ZZ Inspection of Lower Intestinal Tract, Via Natural or Artificial Opening Endoscopic (ICD-10-PCS; CPT 45378; 2024-03-07 14:15)
DX: Z12.11 Encounter for screening for malignant neoplasm of colon (principal); Z86.010 Personal history of colon polyps; K21.9 Gastro-esophageal reflux disease without esophagitis; K29.50 Unspecified chronic gastritis without bleeding; D12.4 Benign neoplasm of descending colon
CPT/HCPCS: 45385; 43239; J2704

== ENCOUNTER → 2024-05-16 08:34 | Outpatient (CLI) | payer MEDICARE, OTHER, SELFPAY ==
[2024-02-15 18:19] VITALS: BMI 30.8
--- NOTE | 2024-05-16 08:35 | DI.RAD.S_ITS ---
PROCEDURE: XR PELVIS 1-2V INDICATIONS: Right thigh numbness, tingling TECHNIQUE: AP view of the pelvis COMPARISON: None. FINDINGS: No fracture or dislocation. Moderate bilateral hip osteoarthritis, superimposed on CAM morphology of the femoral head/neck junctions. Mild bilateral sacroiliac osteoarthritis. Right L5-S1 pseudoarthrosis. Right inguinal hernia repair clips. Pelvic phleboliths. No other soft tissue calcifications, particularly of the right thigh. IMPRESSION: No acute radiographic abnormality of the pelvis. Dictated by: Kevin Almazan M.D. on 05/16/2024 at 13:14 Approved by: Kevin Almazan M.D. on 05/16/2024 at 13:16
== END ==
PROVIDERS: PCP Nurse Practitioner Family; Referring Provider Nurse Practitioner Family; Visit Provider Nurse Practitioner Family
DX: M16.0 Bilateral primary osteoarthritis of hip (principal); M46.1 Sacroiliitis, not elsewhere classified; I87.8 Other specified disorders of veins; R20.0 Anesthesia of skin
CPT/HCPCS: 72170